=== PATIENT | male | born 1995 | race Asian ===

== ENCOUNTER 2020-05-22 11:06 | Emergency (ER) | payer OTHER ==
[~2020-05-22] VITALS: Ht 160 cm; Wt 50.0 kg
[2020-05-22 11:17] VITALS: BP 122/72
== END 2020-05-22 11:44 | disposition left against medical advice (07) ==
LOC: EMS 11:11
DX: T14.90XA Injury, unspecified, initial encounter (principal); Z53.21 Procedure and treatment not carried out due to patient leaving prior to being seen by health care provider; X58.XXXA Exposure to other specified factors, initial encounter; Y93.89 Activity, other specified; Y92.89 Other specified places as the place of occurrence of the external cause; Y99.8 Other external cause status

== ENCOUNTER 2023-05-20 22:01 | Emergency (ER) | payer MEDICAID, OTHER ==
[~2023-05-20] VITALS: Ht 160 cm; Wt 60.0 kg
[~2023-05-20 22:01] MED LIST: AMLO-257 PO; B CO1CAP6 PO; CALC0.2521 PO; CEPH-558 PO; PHOSLOC PO
[2023-05-21 00:21] VITALS: BP 132/74; PULSE 69; RESP 17; TEMP 98.9
== END 2023-05-21 00:49 | disposition home or self-care (01) ==
LOC: EMS 22:13
DX: T82.590A Other mechanical complication of surgically created arteriovenous fistula, initial encounter (principal); Z98.890 Other specified postprocedural states; Z91.012 Allergy to eggs; X58.XXXA Exposure to other specified factors, initial encounter
CPT/HCPCS: 99282; Z7502

== ENCOUNTER 2023-06-16 22:50 | Emergency (ER) | payer MEDICAID ==
[~2023-06-16] VITALS: Ht 160 cm; Wt 60.0 kg
[2023-06-16 22:51] VITALS: BP 153/91; PULSE 84; RESP 16; TEMP 98.6
[2023-06-16] MEDS: GELATIN SPONGE,ABSORBABLE 50 MM TP ONE (23:24)
[2023-06-16] MEDS: ACETAMINOPHEN 500 MG TABLET PO ONE (23:36)
== END 2023-06-17 00:38 | disposition home or self-care (01) ==
LOC: EMS 22:50
DX: T82.838A Hemorrhage due to vascular prosthetic devices, implants and grafts, initial encounter (principal); Z98.890 Other specified postprocedural states; Z91.012 Allergy to eggs; Z88.8 Allergy status to other drugs, medicaments and biological substances
CPT/HCPCS: 12001; 99282; Z7502; Z7610

== ENCOUNTER 2023-10-28 19:19 | Emergency (ER) | payer MEDICAID ==
[~2023-10-28] VITALS: Ht 152.4 cm; Wt 54.5 kg
[2023-10-28 19:29] VITALS: TEMP 98.3
[2023-10-28 19:57] LABS: COVID AG,FIA SOURCE NASAL SWAB
[2023-10-28 20:24] LABS: SARS-COV2 (COVID) ANTIGEN,FIA Negative (Negative)
[2023-10-28] MEDS: GELATIN SPONGE,ABSORBABLE 12-7 MM TP ONE (21:10)
[2023-10-28 23:30] VITALS: BP 151/75; PULSE 89; RESP 30
== END 2023-10-28 23:49 | disposition left against medical advice (07) ==
LOC: EMS 19:20
DX: T82.838A Hemorrhage due to vascular prosthetic devices, implants and grafts, initial encounter (principal); I49.8 Other specified cardiac arrhythmias; Z91.018 Allergy to other foods; Z20.822 Contact with and (suspected) exposure to COVID-19
CPT/HCPCS: 71045; 93005; 99285